=== PATIENT | male | born 1940 | race Caucasian/White ===

== ENCOUNTER 2022-10-14 09:21 | Outpatient (CLI) | payer MEDICARE, SELFPAY | END 2022-10-14 09:22 | disposition home or self-care (01) | LOC: FRMREF 09:21 | PROVIDERS: PCP Family Medicine; Visit Provider Family Medicine | DX: Z00.00 Encounter for general adult medical examination without abnormal findings (principal); E78.5 Hyperlipidemia, unspecified | CPT/HCPCS: 80053 ==